=== PATIENT | female | born 1960 | race Caucasian/White ===

== ENCOUNTER 2025-04-26 10:45 | Outpatient (CLI) | payer OTHER, SELFPAY ==
[2025-04-26 11:41] VITALS: BP 163/92; PULSE 68; RESP 17; TEMP 36.2; O2SAT 96
[2025-04-26 11:56] VITALS: BP 186/81; PULSE 71; RESP 16; O2SAT 100
[2025-04-26] MEDS: LIDOCAINE 1% (PF) 5 ML 10 ML INJ (11:59)
[2025-04-26 12:01] VITALS: BP 160/72; PULSE 63; RESP 16; O2SAT 100
[2025-04-26 12:06] VITALS: BP 191/87; PULSE 70; RESP 16; O2SAT 98
--- NOTE | 2025-04-26 12:43 | PM.PROC.IR.1 ---
Date/Time/Diagnoses Date of procedure: 04/26/25 Time of procedure: 11:30 Pre-procedure diagnosis: Right hip pain, osteoarthritis Post-procedure diagnosis: same Procedure Notes Procedure: Right hip joint injection with fluoroscopic guidance Indications: Right hip pain Physician: Amadou Antonio Total sedation minutes: 0 Complications: none Procedure in detail & Post-procedure care: Patient is here for the planned procedure today as noted. No significant change since the last office visit. For additional clinical scenario please see those office notes. Focused exam: Vital signs reviewed as charted on intake. Gen: Well developed. No acute distress. CV: RRR, no M/R/G Chest: Non-labored breathing, CTAB. Psych: Alert and well-oriented. Mood/Affect: normal. Patient suitable for the planned procedure today: Yes === The following procedure was performed today: Hip joint injection under fluoroscopic guidance (lateral approach) ([id number], [id number]) Approach: Lateral Laterality: Right Soft tissue: [1% lidocaine 2 mL] Injectate: [Dexamethasone 1 mL (10 mg/mL) in 5 mL of 1% lidocaine] Fluoroscopy Agent: Isovue 300-M 1.5 mL Notes: See associated clinic notes for extensive clinical details. We agreed to use alternatives to Marcaine and Depo-Medrol which were used in a prior injection at an outside facility with adverse results, though suspect it was more technical problem then medication-related. Nevertheless we agreed to use dexamethasone and lidocaine today. She reports she has had lidocaine previously with no difficulties. 5 in 22 gauge spinal needle was utilized and adequate. Preprocedure pain 5/10, postprocedure pain 2/10, and she reports greater stability with walking. Procedure: The patient was prepped and draped in a sterile fashion after being placed in the side-lying position. A lateral fluoroscopic view of the hip was obtained. After skin preparation, a 25 gauge needle was used to anesthetize the skin with the anesthetic noted above. A 22 gauge spinal needle was inserted with fluoroscopic guidance to contact periosteum at the femoral head-neck junction, confirmed with multiplanar views. Then, the contrast noted above was injected and a partial hip arthrogram was obtained. The anesthetic/steroid solution noted above was slowly injected into the hip joint. The needle was withdrawn. Appropriate radiographs were obtained. The patient tolerated the procedure well and was discharged after an appropriate period of observation. If there are any complications, the patient was instructed to call us. The patient is to follow-up with the referring provider in 2-3 weeks/as planned. This note was compiled using voice recognition software and therefore may contain typos. Please contact the author with any questions or concerns.
== END 2025-04-26 12:14 | disposition home or self-care (01) ==
LOC: RAD 10:47
PROVIDERS: PCP Internal Medicine; Referring Provider Internal Medicine; Visit Provider Physical Medicine & Rehabilitation
DX: M25.551 Pain in right hip (principal); M16.11 Unilateral primary osteoarthritis, right hip
CPT/HCPCS: 20610; 73502; 77002; J1100